=== PATIENT | male | born 1945 | race Two or more races ===

== ENCOUNTER 2019-10-11 07:17 | Outpatient (CLI) | payer OTHER | END 2019-10-11 07:39 | disposition home or self-care (01) | LOC: NUCLEAR 07:17 | DX: R07.89 Other chest pain (principal) | CPT/HCPCS: 78452; 93017; A9500 ==

== ENCOUNTER 2021-12-02 09:29 | Emergency (ER) | payer OTHER ==
[~2021-12-02] VITALS: Ht 170.2 cm; Wt 75.7 kg
[2021-12-02] MEDS ORDERED: LIPITOR40 M1 PO (09:49)
[2021-12-02] MEDS ORDERED: LOSARTAN POTASS25 MG PO (09:49)
[2021-12-02] MEDS ORDERED: ADULT LOW DOSE81 M1 PO (09:50)
== END 2021-12-02 15:51 | disposition home or self-care (01) ==
LOC: ER 09:29
DX: K40.90 Unilateral inguinal hernia, without obstruction or gangrene, not specified as recurrent (principal); R10.2 Pelvic and perineal pain; K80.20 Calculus of gallbladder without cholecystitis without obstruction; K57.90 Diverticulosis of intestine, part unspecified, without perforation or abscess without bleeding; E78.00 Pure hypercholesterolemia, unspecified; I51.9 Heart disease, unspecified; I10 Essential (primary) hypertension

== ENCOUNTER 2022-12-11 08:07 | Emergency (ER) | payer OTHER ==
[~2022-12-11] VITALS: Ht 170.2 cm; Wt 70.3 kg
[~2022-12-11 08:07] MED LIST: ADULT LOW DOSE81 M1 PO; LIPITOR40 M1 PO; LOSARTAN POTASS25 MG PO
== END 2022-12-11 12:17 | disposition home or self-care (01) ==
LOC: ER 08:07
DX: G56.02 Carpal tunnel syndrome, left upper limb (principal); I10 Essential (primary) hypertension